=== PATIENT | female | born 1985 | race American Indian/Alaskan Native ===

== ENCOUNTER 2019-04-20 22:34 | Emergency (ER) | payer MEDICAID ==
[2019-04-20 23:45] LABS: Basophils # (Auto) 0.1 K/mm3 (0.0-0.1); Basophils % (Auto) 1.3 % (0.0-1.8); Eosinophils # (Auto) 0.1 K/mm3 (0.0-0.4); Eosinophils % (Auto) 1.1 % (0.0-4.3); Hematocrit 35.5 % (30.3-42.9); Hemoglobin 12.8 gm/dl (10.1-14.3); Lymphocytes # (Auto) 2.5 K/mm3 (1.2-5.4); Lymphocytes % (Auto) 30.2 % (13.4-35.0); Mean Corpuscular HGB Conc 36 % (30-34); Mean Corpuscular Volume 90 fl (79-97); Monocytes # (Auto) 0.6 K/mm3 (0.0-0.8); Monocytes % (Auto) 7.1 % (0.0-7.3); Platelet Count 307 K/mm3 (140-440); Red Blood Count 3.97 M/mm3 (3.65-5.03); Red Cell Distribution Width 14.6 % (13.2-15.2)
[2019-04-21 00:15] LABS: Alanine Aminotransferase 15 units/L (7-56); Albumin 3.9 g/dL (3.9-5); BUN/Creatinine Ratio 13; Blood Urea Nitrogen 12 mg/dL (7-17); Calcium 8.5 mg/dL (8.4-10.2); Hemolysis Index 19
[2019-04-21 01:48] LABS: Bilirubin,Urine NEG (Negative); Blood,Urine NEG (Negative); Color,Urine Yellow (Yellow); Mucus,Urine 2+ /HPF; Protein,Urine <15 mg/dL mg/dL (Negative)
[2019-04-21] MEDS ORDERED: IBUPROFEN 800 MG TAB PO ONE (03:00)
[2019-04-21] MEDS ORDERED: LIDOCAINE VISCOUS 2% 15 ML ORAL LIQD PO ONE (03:00)
[2019-04-21] MEDS ORDERED: ALUM-MAG HYDROXIDE-SIMETHICONE 200-200-20MG/5ML ORAL LIQD 30 ML PO ONE (03:00)
--- NOTE | 2019-04-21 03:07 | Emergency Department Report ---
ED Abdominal Pain HPI - General Chief Complaint: Abdominal Pain Stated Complaint: STOMACH PAIN Time Seen by Provider: 04/21/19 02:59 Source: patient Mode of arrival: Ambulatory Limitations: No Limitations - History of Present Illness Initial Comments: pt is a 34 y/o aaf who presents for bilat lower abdominal pain x 1 week , pt has hx of frequent constipation, no fever no chills no n/v no back pain no dysuria no frequency no hematuria no vaginal discharge. LMP 3 weeks ago , pt denies pelvic pain MD Complaint: abdominal pain Onset/Timin -: week(s) Location: LLQ, RLQ Radiation: LLQ, RLQ Migration to: no migration Severity: moderate Severity scale (0 -10): 3 Quality: cramping, aching Consistency: intermittent Improves With: nothing Worsens With: nothing Associated Symptoms: denies: nausea, vomiting, diarrhea, constipation, dysuria, melena - Related Data LMP (females 10-50): 3 weeks Previous Rx's Medication Instructions Recorded Last Taken Type Naproxen [Naprosyn] 500 mg PO BID PRN #30 tablet 04/21/19 Unknown Rx Allergies Allergy/AdvReac Type Severity Reaction Status Date / Time No Known Allergies Allergy Verified 04/20/19 23:13 ED Review of Systems ROS: Stated complaint: STOMACH PAIN Other details as noted in HPI Constitutional: denies: chills, fever Eyes: denies: eye pain, eye discharge, vision change ENT: denies: ear pain, throat pain Respiratory: denies: cough, shortness of breath, wheezing Cardiovascular: denies: chest pain, palpitations Endocrine: no symptoms reported Gastrointestinal: abdominal pain. denies: nausea, vomiting, diarrhea, constipation, melena, hematochezia Genitourinary: denies: urgency, dysuria, frequency, hematuria, discharge, dyspareunia Musculoskeletal: denies: back pain, joint swelling, arthralgia Skin: denies: rash, lesions Neurological: denies: headache, weakness, paresthesias Psychiatric: denies: anxiety, depression Hematological/Lymphatic: denies: easy bleeding, easy bruising ED Past Medical Hx - Medications Home Medications: Home Medications Medication Instructions Recorded Confirmed Last Taken Type Naproxen [Naprosyn] 500 mg PO BID PRN #30 tablet 04/21/19 Unknown Rx ED Physical Exam - General Limitations: No Limitations General appearance: alert, in no apparent distress - Head Head exam: Present: atraumatic, normocephalic - Eye Eye exam: Present: normal appearance, PERRL, EOMI Pupils: Present: normal accommodation - ENT ENT exam: Present: mucous membranes moist - Neck Neck exam: Present: normal inspection, full ROM. Absent: tenderness - Respiratory Respiratory exam: Present: normal lung sounds bilaterally. Absent: respiratory distress, wheezes, stridor, chest wall tenderness - Cardiovascular Cardiovascular Exam: Present: regular rate, normal heart sounds - GI/Abdominal GI/Abdominal exam: Present: soft, normal bowel sounds. Absent: distended, tenderness, guarding, rebound, rigid, bruit, hernia - Rectal Rectal exam: Present: deferred - Extremities Exam Extremities exam: Present: normal inspection, full ROM, normal capillary refill. Absent: tenderness, pedal edema - Back Exam Back exam: Present: normal inspection, full ROM, muscle spasm. Absent: tenderness, CVA tenderness (R), CVA tenderness (L), paraspinal tenderness, vertebral tenderness, rash noted - Neurological Exam Neurological exam: Present: alert, oriented X3, CN II-XII intact, normal gait, reflexes normal. Absent: motor sensory deficit - Psychiatric Psychiatric exam: Present: normal affect, normal mood - Skin Skin exam: Present: warm, dry, intact, normal color. Absent: rash ED Course Vital Signs 04/20/19 23:50 Temperature 98.6 F Pulse Rate 83 Respiratory 16 Rate Blood Pressure 127/83 O2 Sat by Pulse 95 Oximetry ED Medical Decision Making - Lab Data Result diagrams: 04/20/19 23:18 04/20/19 23:18 Lab Results 04/20/19 04/20/19 04/20/19 Range/Units 23:18 23:18 23:18 WBC 8.2 (4.5-11.0) K/mm3 RBC 3.97 (3.65-5.03) M/mm3 Hgb 12.8 (10.1-14.3) gm/dl Hct 35.5 (30.3-42.9) % MCV 90 (79-97) fl MCH 32 (28-32) pg MCHC 36 H (30-34) % RDW 14.6 (13.2-15.2) % Plt Count 307 (140-440) K/mm3 Lymph % (Auto) 30.2 (13.4-35.0) % [place] % (Auto) 7.1 (0.0-7.3) % Eos % (Auto) 1.1 (0.0-4.3) % Baso % (Auto) 1.3 (0.0-1.8) % Lymph # 2.5 (1.2-5.4) K/mm3 [place] # 0.6 (0.0-0.8) K/mm3 Eos # 0.1 (0.0-0.4) K/mm3 Baso # 0.1 (0.0-0.1) K/mm3 Seg Neutrophils % 60.3 (40.0-70.0) % Seg Neutrophils # 4.9 (1.8-7.7) K/mm3 Sodium 138 (137-145) mmol/L Potassium 4.0 (3.6-5.0) mmol/L Chloride 103.3 (98-107) mmol/L Carbon Dioxide 26 (22-30) mmol/L Anion Gap 13 mmol/L BUN 12 (7-17) mg/dL Creatinine 0.9 (0.7-1.2) mg/dL Estimated GFR > 60 ml/min BUN/Creatinine Ratio 13 % Glucose 111 H (65-100) mg/dL Calcium 8.5 (8.4-10.2) mg/dL Total Bilirubin 0.20 (0.1-1.2) mg/dL AST 20 (5-40) units/L ALT 15 (7-56) units/L Alkaline Phosphatase 63 (35-129) units/L Total Protein 7.7 (6.3-8.2) g/dL Albumin 3.9 (3.9-5) g/dL Albumin/Globulin Ratio 1.0 % HCG, Qual Negative (Negative) Urine Color (Yellow) Urine Turbidity (Clear) Urine pH (5.0-7.0) Ur Specific Odd (1.003-1.030) Urine Protein (Negative) mg/dL Urine Glucose (UA) (Negative) mg/dL Urine Ketones (Negative) mg/dL Urine Blood (Negative) Urine Nitrite (Negative) Urine Bilirubin (Negative) Urine Urobilinogen (<2.0) mg/dL Ur Leukocyte Esterase (Negative) Urine WBC (Auto) (0.0-6.0) /HPF Urine RBC (Auto) (0.0-6.0) /HPF U Epithel Cells (Auto) (0-13.0) /HPF Urine Mucus /HPF 04/20/19 Range/Units Unknown WBC (4.5-11.0) K/mm3 RBC (3.65-5.03) M/mm3 Hgb (10.1-14.3) gm/dl Hct (30.3-42.9) % MCV (79-97) fl MCH (28-32) pg MCHC (30-34) % RDW (13.2-15.2) % Plt Count (140-440) K/mm3 Lymph % (Auto) (13.4-35.0) % [place] % (Auto) (0.0-7.3) % Eos % (Auto) (0.0-4.3) % Baso % (Auto) (0.0-1.8) % Lymph # (1.2-5.4) K/mm3 [place] # (0.0-0.8) K/mm3 Eos # (0.0-0.4) K/mm3 Baso # (0.0-0.1) K/mm3 Seg Neutrophils % (40.0-70.0) % Seg Neutrophils # (1.8-7.7) K/mm3 Sodium (137-145) mmol/L Potassium (3.6-5.0) mmol/L Chloride (98-107) mmol/L Carbon Dioxide (22-30) mmol/L Anion Gap mmol/L BUN (7-17) mg/dL Creatinine (0.7-1.2) mg/dL Estimated GFR ml/min BUN/Creatinine Ratio % Glucose (65-100) mg/dL Calcium (8.4-10.2) mg/dL Total Bilirubin (0.1-1.2) mg/dL AST (5-40) units/L ALT (7-56) units/L Alkaline Phosphatase (35-129) units/L Total Protein (6.3-8.2) g/dL Albumin (3.9-5) g/dL Albumin/Globulin Ratio % HCG, Qual (Negative) Urine Color Yellow (Yellow) Urine Turbidity Clear (Clear) Urine pH 6.0 (5.0-7.0) Ur Specific Odd 1.030 (1.003-1.030) Urine Protein <15 mg/dl (Negative) mg/dL Urine Glucose (UA) Neg (Negative) mg/dL Urine Ketones Neg (Negative) mg/dL Urine Blood Neg (Negative) Urine Nitrite Neg (Negative) Urine Bilirubin Neg (Negative) Urine Urobilinogen 2.0 (<2.0) mg/dL Ur Leukocyte Esterase Neg (Negative) Urine WBC (Auto) 1.0 (0.0-6.0) /HPF Urine RBC (Auto) 2.0 (0.0-6.0) /HPF U Epithel Cells (Auto) 4.0 (0-13.0) /HPF Urine Mucus 2+ /HPF - Radiology Data Radiology results: image reviewed KUB nonobstructive gas pattern - Medical Decision Making KUB: normal nonobstructive gas pattern, labs normal, pt is tolerating po intake no n/v no fever , no chills no vaginal discharge no dysuria, frequency or urgency, , plan laxitive of choice prn, follow up with pcp in 2-3 days pt given referral to [facility] follow , abd pain is now 1/10 no n/v no fever or chills pt is tolerating po intake without symptoms. Critical care attestation.: If time is entered above; I have spent that time in minutes in the direct care of this critically ill patient, excluding procedure time. ED Disposition Clinical Impression: Abdominal pain Qualifiers: Abdominal location: left lower quadrant Qualified Code(s): R10.32 - Left lower quadrant pain Disposition: TO HOME OR SELFCARE Is pt being admited?: No Does the pt Need Aspirin: No Condition: Stable Instructions: Abdominal Pain (ED) Prescriptions: Naproxen [Naprosyn] 500 mg PO BID PRN #30 tablet PRN Reason: Pain , Severe (7-10) Referrals: STARR VALENTE DO [Primary Care Provider] - 3-5 Days Forms: Work/School Release Form(ED) Time of Disposition: 03:52
--- NOTE | 2019-04-21 03:39 | XRay Report ---
ABDOMEN 1 VIEW INDICATION / CLINICAL INFORMATION: abd pain LLQ. COMPARISON: None available. FINDINGS: STATEMENTS: The diaphragms are excluded from [id number]. TUBES / LINES: None. BOWEL GAS PATTERN: No significant abnormality. ADDITIONAL FINDINGS: No significant additional findings. IMPRESSION: 1. No significant abnormality. Signer Name: Lizzeth Coleman MD Signed: 04/21/2019 3:34 AM Workstation Name: [id number]
[2019-04-21 06:29] VITALS: BP 120/70
== END 2019-04-21 04:10 | disposition home or self-care (01) ==
LOC: ED 22:34
DX: R10.32 Left lower quadrant pain (principal); R10.31 Right lower quadrant pain; K59.00 Constipation, unspecified
CPT/HCPCS: 36415; 74018; 80053; 81001; 84703; 85025

== ENCOUNTER 2019-09-17 09:39 | Emergency (ER) | payer MEDICAID ==
[2019-09-17 10:01] VITALS: BP 138/81
--- NOTE | 2019-09-17 11:32 | Emergency Department Report ---
Chief Complaint: Skin Rash Stated Complaint: BREAST Time Seen by Provider: 09/17/19 11:06 - [facility] History of Present Illness: This is a 34-year-old female who presents the ED complaining of small abrasion to the left breast for the past 2 weeks. Patient states that it started with itching and then she noticed some pus but no stridor. Patient states that she is also been having bilateral aching of both breast. She denies redness, swelling, nipple discharge, fever, chest pain shortness of breath - ROS Review of Systems: As noted in HPI - Exam Vital Signs: Vital Signs 09/17/19 09:58 Temperature 97.4 F L Pulse Rate 69 Respiratory 20 Rate Blood Pressure 138/81 O2 Sat by Pulse 100 Oximetry Physical Exam: GENERAL: Alert and oriented x3, no apparent distress, Normal Gait, atraumatic. HEAD: Head is normocephalic and a-traumatic. BREAST: Symetrical, Supple bilaterally, No Masses, lumps, lesions, ulcerations. No redness, no swelling, no nipple discharge bilaterally MSE screening note: Focused history and physical exam performed. Due to findings the following was ordered: ED Medical Decision Making - Medical Decision Making 24-year-old female presents with abrasion of the left breast, Discussed with patient need to follow-up with a primary care physician/women's health. Breast exam shows no abnormalities. Discussed with patient to take Motrin as needed for pain otherwise follow-up. ED Disposition for MSE Clinical Impression: Abrasion of left female breast Disposition: MED SCREENING EXAM-LEFT Is pt being admited?: No Does the pt Need Aspirin: No Condition: Stable Instructions: Abrasion (ED) Additional Instructions: Make sure to follow up with the primary care physician as discussed. Take all your medications as you've been prescribed. If you have any worsening symptoms or develop new symptoms please return to ED immediately. Referrals: PRIMARY CARE, [Primary Care Provider] - 3-5 Days [facility] [Outside] - 3-5 Days [facility] [Outside] - 3-5 Days [facility] [Outside] - 3-5 Days Forms: Work/School Release Form(ED) Time of Disposition: 11:36
== END 2019-09-17 11:48 | disposition left against medical advice (07) ==
LOC: ED 09:39
DX: S20.112A Abrasion of breast, left breast, initial encounter (principal); X58.XXXA Exposure to other specified factors, initial encounter; Y93.89 Activity, other specified; Y92.89 Other specified places as the place of occurrence of the external cause; Y99.8 Other external cause status
CPT/HCPCS: 99281